=== PATIENT | female | born 1970 | race Caucasian/White ===

== ENCOUNTER 2021-08-02 01:56 | Observation (INO) ==
[2021-08-02] MEDS ORDERED: ONDANSETRON 4 MG/2 ML VIAL IV PRN ×2 (02:21→08:36)
[2021-08-02] MEDS ORDERED: ceFAZolin 2 GM in DEXTROSE 5% IN WATER 50 ML IV ONE (02:25)
[2021-08-02] MEDS ORDERED: 0.9 % SODIUM CHLORIDE 1,000 ML IV SCH (02:30)
--- NOTE | 2021-08-02 03:39 | Emergency Department Note ---
Lower Extremity Injury HPI General Chief Complaint: Extremity Injury, Lower Stated Complaint: ankle fx Time Seen by Provider: 08/02/21 02:19 Source: patient, old records reviewed and other (Transferring physician Dr. Ami Alvares. Accepting physician Dr. Wisdmo.) Mode of arrival: EMS Limitations: no limitations History of Present Illness HPI Narrative: Narrative: 50-year-old female presents the emergency department in transfer from [facility]. Patient was at the [facility] leaving the [facility] when she tripped over a power cord. She sustained a trimalleolar open fracture of her left ankle. She was seen at that hospital where a closed reduction was performed in a posterior splint was placed. The laceration was simply closed and discussed with our orthopedic surgeon Dr. Wisdom. He was agreeable to admit the patient to our hospital in anticipation of surgery in the morning. While at the other hospital patient received 8 mg of morphine IV for pain she received Zofran for nausea she received IV fluids. In route she received additional morphine in the ambulance. 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 Patient has had back surgery by Dr. Bolaños. She has had various other orthopedic procedures and some [employer] procedures. She does not have lung disease heart disease or diabetes. Related Data Home Medications Medication Instructions Recorded Confirmed diphenhydramine HCl 25 mg capsule 25 mg PO ONCE cap 06/09/21 06/09/21 fexofenadine 180 mg tablet 180 mg PO ONCE tab 06/09/21 06/09/21 fluticasone propionate [Flonase] INTRANASAL 06/09/21 06/09/21 meloxicam 15 mg tablet 15 mg PO ONCE tab 06/09/21 06/09/21 estradiol 2 mg tablet 2 mg PO QDAY 06/16/21 gabapentin 300 mg capsule 2,400 mg PO QID cap 06/16/21 methocarbamol 500 mg tablet 1,000 mg PO Q8H 06/16/21 ropinirole 0.5 mg tablet 0.5 mg PO QHS 06/16/21 spironolactone 50 mg tablet 50 mg PO BID 06/16/21 tramadol 50 mg tablet 50 mg PO ONCE PRN tab 06/16/21 trazodone 50 mg tablet 50 mg PO QHS PRN 06/16/21 aspirin 81 mg PO QDAY 08/02/21 08/02/21 duloxetine 30 mg PO BID 08/02/21 08/02/21 hydromorphone 2 - 4 mg PO Q4H PRN 08/02/21 08/02/21 lactobacillus combination no.8 1 cell PO DAILY 08/02/21 08/02/21 [Adult Probiotic] lifitegrast [Xiidra] 1 drp OPHTHALMIC (EYE) BID 08/02/21 08/02/21 minocycline 100 mg PO BID 08/02/21 08/02/21 pregabalin 50 mg PO BID 08/02/21 08/02/21 Allergies Allergy/AdvReac Type Severity Reaction Status Date / Time clindamycin [From Cleocin] Allergy Unknown Itching Verified 08/02/21 02:22 hydrocodone Allergy Unknown Itching Verified 08/02/21 02:22 Review of Systems ROS ROS Narrative: Narrative: Constitutional: Denies fever Eyes: Denies eye pain ENT ED: Denies ear pain Cardiovascular: Denies chest pain Respiratory: Denies shortness of breath Gastrointestinal: Denies abdominal pain Musculoskeletal: Reports back pain (Had surgery for this 1 month ago.) Integumentary: Denies rash Psychiatric: Reports depression Hematological/Lymphatic: Denies easy bleeding Allergic/Immunologic: Denies facial swelling PFSH Narrative Patient History Narrative: Narrative: Medical/Surgical/Family History All Active Problems (Updated 08/02/21 @ 03:42 by Jori Zambrano MD) Open trimalleolar fracture of left ankle (Acute) Chronic pain (Chronic) Radiculopathy, lumbosacral region (Acute) Hip pain (Chronic) Bilateral leg numbness (Chronic) Low back pain (Chronic) Stiffness in joint (Chronic) Heartburn (Chronic) Depression (Chronic) Lumbar radiculopathy (Chronic) Medical History Bilateral leg numbness Chronic pain Depression Heartburn Hip pain Low back pain Lumbar radiculopathy Stiffness in joint Surgical History History of arthroscopy of right knee History of arthroscopy of right shoulder History of History of foot surgery History of hysterectomy History of laparoscopy History of left hip replacement History of right hip replacement History of spinal fusion History of surgery 04/01 LESI #2 L3-4 w/o sed 04/06/1801/30 LESI #1 L3-4 w/o sed 01/27/201808/30 LESI #3 L3-4 w/o sed 08/17/201607/31 Hip Joint Injection, Left w/o sed 07/27/201605/30 LESI #2 L3-4 w/sed 06/03/201604/30 LESI #1 L3-4 w/sed 05/14/1601/28 Caudal WHITLEY #3 w/sed 02/06/1611/30 LESI #2 L5-S1, L2-3 w/sed 11/25/201510/29 LESI #1 L5-S1 w/sed 10/24/201508/26 LESI #3 L4-5 w/sed 09/06/201207/27 LESI #2, right dir. L4-5 w/o sed 08/03/201206/26 LESI #1 L4-5 w/o sed 06/22/201204/26 LESI #3, right L4-5 w/o sed 04-21-1202/24 LESI #2 L4-5 w/o sed 03-10-1211/26 LESI #1 L4-5 Rt Directed w/ sed (11-18-11) 06/25 WILFRED #3, w/cath, w/o sed 07-09-1106/25 WILFRED #2 w/cath w/out sed 06-22-1105/25 WILFRED #1 w/cath w/o sed (06-04-11) History of tonsillectomy Family History Father Hypertension Liver disease Cancer Coronary artery disease Mother Blood clotting disorder Heart attack Cancer Hypertension Diabetes Family/Other Cancer Hypertension Sister Cancer Hypertension Alcohol abuse Drug abuse Social History Alcohol Intake Frequency: 0-2 drinks per day Substance Use: does not use Exam Narrative Narrative: Narrative: General Limitations: no limitations General appearance: Present alert and in no apparent distress Head Head: Present atraumatic and normocephalic Eye Eye: Present normal appearance Respiratory Respiratory: Present normal lung sounds bilaterally; Absent respiratory distress Cardiovascular Cardiovascular: Present normal rhythm and tachycardia (109) Adbominal Abdominal: Present soft; Absent tenderness Neurological Neurological: Present alert and oriented X3 Psychiatric Psychiatric: Present normal affect and normal mood Skin Skin: Present warm (WNL) and dry Course Vital Signs Vital signs: Vital Signs Temperature 98.0 F 08/02/21 02:11 Pulse Rate 100 H 08/02/21 02:11 Respiratory Rate 16 08/02/21 02:11 Blood Pressure 123/63 08/02/21 02:11 Pulse Oximetry (%) 99 08/02/21 02:11 Temperature 98.0 F 08/02/21 02:11 Pulse Rate 93 H 08/02/21 03:15 Respiratory Rate 16 08/02/21 02:11 Blood Pressure 115/74 08/02/21 03:15 Pulse Oximetry (%) 95 08/02/21 03:15 MDM MDM Narrative Medical decision making narrative: Narrative: 50-year-old female status post fall and trip which led to a trimalleolar open fracture left ankle now transferred to our facility for anticipated admission and open surgical repair. Patient is splinted and bandaged and I did not take this off. I discussed the case with Dr. Wisdom who confirmed that he wanted to do surgery at 7 AM tomorrow. He requested the patient be n.p.o. and be given 2 g of Ancef. This was administered. The patient had previously received 1 g of ceftriaxone. Patient previously received morphine without any reaction. Patient was given an order for morphine 2 mg IV every hour as needed pain here in the emergency department. Also in order for ondansetron 4 mg IV as needed nausea vomiting. Patient will be admitted to Dr. Wisdom for surgery at 0700 Discharge Plan Patient/Caregiver Discharge Instructions Pt seen by LOG GRADER/PA only: No Clinical Impression: Open trimalleolar fracture of left ankle Qualifiers: Encounter type: subsequent encounter Patient Disposition: Xfer As Outpt/Obs ([facility]) Condition: Fair Follow up with: Chetna Deras MD [Primary Care Provider] - Prescriptions: No Action meloxicam 15 mg tablet 15 mg PO ONCE RF: 0 fluticasone propionate [Flonase] intranasal RF: 0 diphenhydramine HCl [Benadryl] 25 mg capsule 25 mg PO PRN PRN (Reason: Itching) RF: 0 fexofenadine 180 mg tablet 180 mg PO DAILY RF: 0 gabapentin 300 mg capsule 600 mg PO BID RF: 0 tramadol 50 mg tablet 50 mg PO ONCE PRN (Reason: Pain) RF: 0 methocarbamol 500 mg tablet 750 mg PO Q8H RF: 0 estradiol 2 mg tablet 2 mg PO QDAY RF: 0 trazodone 50 mg tablet 50 mg PO QHS PRN (Reason: Sleep) RF: 0 ropinirole 0.5 mg tablet 0.5 mg PO QHS RF: 0 spironolactone 50 mg tablet 50 mg PO BID RF: 0 minocycline 100 mg Capsule 100 mg PO BID RF: 0 hydromorphone 2 mg Tablet 2 - 4 mg PO Q4H PRN (Reason: Pain) RF: 0 aspirin 81 mg Tablet 81 mg PO QDAY RF: 0 duloxetine 30 mg Capsule,Delayed Release(Dr/Ec) 30 mg PO BID RF: 0 pregabalin 50 mg Capsule 50 mg PO BID RF: 0 Adult Probiotic 3 billion cell Capsule 1 cell PO DAILY RF: 0 Xiidra 5 % Dropperette 1 drp OPHTHALMIC (EYE) BID RF: 0 Discharge Date/Time: 08/02/21 03:33 Discharge Location: [facility]charge Comment: RM 109
[2021-08-02] MEDS: morphine 2 MG/ML VIAL IV PRN ×3 (04:46→19:30)
[2021-08-02] MEDS ORDERED: SCOPOLAMINE 1 PATCH PATCH TOPICAL PRN (07:00)
[2021-08-02] MEDS ORDERED: IPRATROPIUM/ALBUTEROL 3 ML AMPUL.NEB NEB PRN ×2 (07:00→08:36)
[2021-08-02] MEDS ORDERED: ceFAZolin 2 GM in DEXTROSE 5% IN WATER 50 ML IV SCH (07:15)
[2021-08-02] MEDS ORDERED: ceFAZolin 1 GM VIAL ONE (07:24)
[2021-08-02] MEDS ORDERED: HYDROmorphone 1 MG/ML SYRINGE ONE (07:35)
[2021-08-02] MEDS ORDERED: KETAMINE 50 MG/ML Syringe (ANEST) IV ONE (07:35)
[2021-08-02] MEDS ORDERED: ONDANSETRON 4 MG/2 ML VIAL ONE (07:35)
[2021-08-02] MEDS ORDERED: DEXAMETHASONE 10 MG/ML VIAL ONE (07:35)
[2021-08-02] MEDS ORDERED: MAGNESIUM SULFATE 2 GM/50 ML BAG IV ONE (07:35)
[2021-08-02] MEDS ORDERED: LIDOCAINE HCL/PF 100 MG/5 ML SYRINGE IV ONE (07:35)
[2021-08-02] MEDS ORDERED: PROPOFOL 200 MG/20 ML VIAL IV ONE (07:35)
[2021-08-02] MEDS ORDERED: PROMETHAZINE 25 MG/ML VIAL IV PRN (08:36)
[2021-08-02] MEDS ORDERED: METHOCARBAMOL 1,000 MG/10 ML VIAL IV PRN (08:36)
[2021-08-02] MEDS ORDERED: KETOROLAC 30 MG/ML VIAL IV PRN (08:36)
[2021-08-02] MEDS ORDERED: fentaNYL 100 MCG/2 ML VIAL IV PRN (08:36)
[2021-08-02] MEDS ORDERED: ACETAMINOPHEN 1,000 MG/100 ML BAG IV ONE (08:36)
[2021-08-02] MEDS ORDERED: HYDROmorphone 0.5 MG/0.5 ML SYRINGE IV PRN (08:36)
[2021-08-02] MEDS ORDERED: LACTATED RINGERS 250 ML IV PRN (08:36)
[2021-08-02] MEDS ORDERED: NALOXONE HCL 0.4 MG/ML VIAL IV PRN (08:36)
[2021-08-02] MEDS ORDERED: diphenhydrAMINE 50 MG/ML VIAL IV PRN (08:36)
[2021-08-02] MEDS ORDERED: MEPERIDINE 25 MG/ML VIAL IV PRN (08:36)
--- NOTE | 2021-08-02 08:38 | History and Physical Report ---
DATE OF ADMISSION: 08/02/2021 HISTORY OF PRESENT ILLNESS: The patient is a 50-year-old female who presents to the emergency department as a transfer from [facility]. She states that she was at the [employer] earlier yesterday when she tripped over a power cord. She had immediate left ankle pain and was subsequently transferred to the hospital where they obtained imaging and imaging revealed a open trimalleolar fracture of the left ankle. She was subsequently transferred to [facility] after closed reduction and splinting was performed. She denies any other injuries and denies loss of consciousness. REVIEW OF SYSTEMS: A 10-point review of systems is negative except as noted in the HPI. ALLERGIES: CLINDAMYCIN AND HYDROCODONE. PAST MEDICAL HISTORY: Chronic pain, radiculopathy, lumbosacral hip pain, bilateral leg numbness, low back pain, heart burn, depression. PAST SURGICAL HISTORY: Right knee arthroscopy, right shoulder arthroscopy, , foot surgery, hysterectomy, laparoscopy, left hip replacement, right hip replacement, spinal fusion, spinal injections, tonsillectomy. FAMILY HISTORY: Father with hypertension, liver disease, cancer, CAD. Mother with blood clotting disorder, heart attack, cancer, hypertension, diabetes. SOCIAL HISTORY: Alcohol intake and frequency, 0 to 2 drinks per day. Substance use, denies. PHYSICAL EXAMINATION: Vital Signs: Blood pressure 105/65, pulse 86, respirations 17, temp 96.7, O2 saturation 96. General: The patient is a well-developed, well-nourished female. She is alert, oriented, interactive and appropriate and in no acute distress. Cardiac: Regular rate. Pulmonary: Clear to auscultation bilaterally. Normal effort. Extremities: Left lower extremity, posterior splint in place overwrapped with Bart wrap, exposed digits of the left lower extremity, warm and well-perfused, intact light sensation. She is able to wiggle all of her toes. No tenderness above the knee or contralateral extremity. ASSESSMENT AND PLAN: The patient is a 50-year-old female status post a ground level fall with an open trimalleolar ankle fracture. Discussed the injury and the natural course of deconditioning and treatment options with recommendation of operative intervention. Given the open nature of this fracture, discussed this with Dr Najera who is also in agreement with this plan. The patient did receive 2 grams of Ancef and has been n.p.o. We reviewed the operative procedure as well as the risks and benefits associated with the procedure. The risks and benefits were discussed with the patient in detail including but not limited to the risk of anesthesia, problems with the heart or lungs related to anesthesia, infection, compromise or injury to the nerves and blood vessels, deep venous thrombosis, pulmonary embolism, pneumonia, continued pain after surgery, worsening pain or symptoms after surgery, swelling, loss of motion, failure at the repair site, redislocation, and need for repeat surgery. The patient understands these risks and has elected to proceed. Plan will be for ORIF left trimalleolar ankle fracture. Her questions were answered. ROGERIO:flora Job ID: [id number] Doc ID: [id number] Tee Camejo PA-C
--- NOTE | 2021-08-02 08:44 | General Surgery Procedure Note ---
Date of procedure: Note initiated : 08/02/21 at 8:39 am Service Date, if different from initiated Date: [] Pre-op diagnosis: left ankle fracture open dislocation with fracture of medial malleolus Post-op diagnosis: same Procedure: open reduction internal fixation of left ankle fracture dislocation, irrigation and debridement of left ankle Findings: deltoid ligament tear, lateral malleolus fracture Anesthesia: CHRISTINEA Surgeon: Noé Wisdom Kosher Sealer: Tee Camejo Estimated blood loss: 25 Pathology: none sent Condition: stable Disposition: PACU
--- NOTE | 2021-08-02 08:44 | Discharge Plan ---
DC Instructions-General Patient Instructions Dressing Care: Cover dressing in shower Discharge Plan Patient/Caregiver Discharge Instructions Activity: non-weight bearing Diet: Regular Diet Prescriptions: No Action fluticasone propionate [Flonase] 1 spray intranasal DAILY RF: 0 diphenhydramine HCl [Benadryl] 25 mg capsule 25 mg PO PRN PRN (Reason: Itching) RF: 0 fexofenadine 180 mg tablet 180 mg PO DAILY RF: 0 tramadol 50 mg tablet 50 mg PO ONCE PRN (Reason: Pain) RF: 0 methocarbamol 500 mg tablet 750 mg PO Q4-6HP PRN (Reason: Muscle Spasm) RF: 0 estradiol 2 mg tablet 2 mg PO QDAY RF: 0 trazodone 50 mg tablet 50 mg PO QHS PRN (Reason: Sleep) RF: 0 ropinirole 0.5 mg tablet 0.5 mg PO QHS RF: 0 spironolactone 50 mg tablet 50 mg PO BID RF: 0 minocycline 100 mg Capsule 100 mg PO BID RF: 0 hydromorphone 2 mg Tablet 2 - 4 mg PO Q4-6HP PRN (Reason: Pain) RF: 0 aspirin 81 mg Tablet 81 mg PO QDAY RF: 0 duloxetine 30 mg Capsule,Delayed Release(Dr/Ec) 30 mg PO BID RF: 0 pregabalin 50 mg Capsule 50 mg PO BID RF: 0 Adult Probiotic 3 billion cell Capsule 1 cell PO DAILY RF: 0 Xiidra 5 % Dropperette 1 drp OPHTHALMIC (EYE) BID RF: 0 gabapentin [Neurontin] 600 mg tablet 1,800 mg PO BID RF: 0 Follow Up Plan Follow up with: Noé Wisdom MD [Physician] - Chetna Deras MD [Primary Care Provider] - Patient Disposition: Home, Self-Care Prognosis: Fair Rehab Potential: Good I certify that the patient requires SNF services: No Overall status at discharge: patient is progressing back to baseline Discharge Orders: Discharge Order (Routine); Ordered 08/02/21 Ordered By: Noé Wisdom Discharge Comment: cc: open ankle fracture dislocation
[2021-08-02] MEDS ORDERED: LACTATED RINGERS 1,000 ML IV SCH ×2 (08:45)
[2021-08-02] MEDS ORDERED: ONDANSETRON 4 MG ODT TABLET SL PRN (08:45)
[2021-08-02] MEDS ORDERED: morphine 4 MG/ML VIAL IV PRN (08:45)
[2021-08-02] MEDS ORDERED: BUPIVACAINE 0.5% 50 ML VIAL IJ ONE (09:00)
[2021-08-02] MEDS ORDERED: diphenhydrAMINE 50 MG/ML VIAL IV ONE (10:12)
[2021-08-02] MEDS: hydrOXYzine 25 MG TABLET PO PRN ×2 (11:36→19:29)
[2021-08-02] MEDS: HYDROmorphone 2 MG TABLET PO PRN ×2 (12:41→17:12)
[2021-08-02] MEDS: 0.9 % SODIUM CHLORIDE 10 ML SYRINGE IV SCH ×2 (14:26→19:20)
[2021-08-02] MEDS: ceFAZolin 1 GM VIAL IV SCH ×2 (14:56→19:20)
--- NOTE | 2021-08-04 08:17 | Operative Note ---
DATE OF OPERATION: 08/02/2021 PREOPERATIVE DIAGNOSES: 1. Left ankle fracture dislocation with a partial tear of the deltoid ligament and a comminuted Rivas B fracture of the lateral malleolus. 2. Open Gustilo grade 1A ankle fracture. POSTOPERATIVE DIAGNOSES: 1. Left ankle fracture dislocation with a partial tear of the deltoid ligament and a comminuted Rivas B fracture of the lateral malleolus. 2. Open Gustilo grade 1A ankle fracture. PROCEDURE PERFORMED: 1. Open reduction and internal fixation of the left ankle fracture dislocation with fixation of the lateral malleolus. 2. Irrigation and debridement of left ankle open fracture dislocation. SURGEON: Silvestre Wisdom M.D. SENIOR PAINTER SURGEON: ELIEL Kapoor. ANESTHESIA: General. INTRAOPERATIVE FINDINGS: 1. A 3 cm transverse laceration over the medial malleolus with partial disruption of the deltoid ligament. 1. Comminuted Rivas B lateral malleolus fracture. 2. No evidence of syndesmosis injury. 3. Gustilo grade 1A open fracture with no contamination. INDICATIONS: The patient is a 60-year-old female who fell and sustained the above injury. She was reduced, irrigated and stitched at the [facility] and then transferred to [facility] for definitive treatment. We talked about her options. She wished to proceed with surgical intervention. The risks and benefits were discussed with the patient in detail including, but not limited to, the risks of anesthesia, problems with the heart or lungs related to anesthesia, infection, compromise or injury to the nerves and blood vessels, deep venous thrombosis, pulmonary embolism, pneumonia, continued pain after surgery, worsening pain or symptoms after surgery, swelling, loss of motion, need for repeat surgery, hardware failure, re-tear or failure of repair site, malunion, nonunion, and hardware pain requiring future removal. DESCRIPTION OF PROCEDURE: The patient was seen preoperatively where site and side was marked and questions were answered. She was then transferred to the operating room, given 2 grams of Ancef and general anesthesia was administered without complication. She was prepped and draped in the usual sterile fashion from the toes up to the tourniquet. Esmarch bandage was used to exsanguinate the limb and tourniquet was inflated to 250 mmHg. I slightly extended the medial transverse incision. We came down and saw a partial disruption of the deltoid, but it was overall intact. We thoroughly irrigated with IrriSept and saline, 6 liters of fluid. I then made an approach to the lateral malleolus through the skin and subcutaneous tissue and bone window was created medially and laterally. We dissected down to the fracture site. We opened this up and again irrigated with 3 liters of saline and IrriSept. At this point, there was no gross contamination, I felt it was clean. I reduced the fibula fracture. We placed 1 anterior to posterior lag screw. We then placed a Synthes distal fibula locking plate, 4-hole. We used a combination of cortical and locking screws to anatomically reduce the fracture. At this point, radiographs were taken. I did a cotton test and external rotation stress test and the syndesmosis was stable. The deltoid was also stable on eversion testing. We again irrigated, closed the deep fascia with 0 Monocryl, subcutaneous layer was closed with 3-0 Monocryl and the skin was closed with Prolene. She was dressed with Xeroform, 4 x 4's, ABD, and placed into a folded well-molded, well-padded posterior splint with sidebars. She was then extubated, transferred to a stretcher and taken to PACU in stable condition. SPECIMENS: None. COMPLICATIONS: None. DRAINS: None. DISPOSITION: PACU. KENNEDY:monica Job ID: [id number] Doc ID: [id number] Silvestre Wisdom MD
== END 2021-08-02 20:20 | disposition home or self-care (01) ==
LOC: MEDSUR 01:56 → ED 01:56
PROVIDERS: ADMIT Orthopaedic Surgery Sports Medicine; ATTEND Orthopaedic Surgery Sports Medicine